=== PATIENT | female | born 1940 | race Caucasian/White ===

== ENCOUNTER 2024-06-10 08:19 | Day surgery (SDC) | payer MEDICARE, BC ==
[~2024-06-10 08:19] MED LIST: Morphine 8 MG, EPINEPHrine 0.3 MG, Cefuroxime 750 MG, Ketorolac 30 MG, Sodium Chloride ... PRN; Sodium Chloride 0.9% 10 ML Syringe FLUSH PRN; Sodium Chloride 0.9% 10 ML Syringe FLUSH SCH
[2024-06-10] MEDS: Lactated Ringers 1,000 ML IV SCH (09:00)
[2024-06-10] MEDS ORDERED: EPINEPHrine 1 MG/ML SDV ONE (09:26)
[2024-06-10] MEDS ORDERED: fentaNYL 100 MCG/2 ML SDV ONE (09:27)
[2024-06-10] MEDS ORDERED: Ropivacaine 0.5% 5 MG/ML 30 ML SDV ONE (09:28)
[2024-06-10] MEDS ORDERED: dexmedeTOMIDine HCl 200 MCG/2 ML SDV ONE (09:31)
[2024-06-10] MEDS ORDERED: Dexamethasone 4 MG/ML 5 ML MDV ONE (09:31)
[2024-06-10] MEDS ORDERED: Ondansetron 4 MG/2 ML SDV ONE (09:34)
[2024-06-10] MEDS ORDERED: ceFAZolin 2 GM Vial ONE (09:34)
[2024-06-10] MEDS ORDERED: Propofol 200 MG/20 ML SDV ONE (09:38)
[2024-06-10] MEDS ORDERED: Lactated Ringers 1,000 ML ONE (10:40)
[2024-06-10] MEDS: Morphine 8 MG, EPINEPHrine 0.3 MG, Cefuroxime 750 MG, Ketorolac 30 MG, Sodium Chloride ... PRN (11:13)
[2024-06-10] MEDS: VANCOmycin 1 GM SDV ONE (11:20)
[2024-06-10] MEDS: Tranexamic Acid 1,000 MG/10 ML Vial ONE (11:20)
[2024-06-10] MEDS: Bupivacaine 0.25% 10 ML SDV ONE (11:34)
[2024-06-10] MEDS: Triamcinolone Acetonide 40 MG/ML 1 ML SDV ONE (11:34)
[2024-06-10] MEDS ORDERED: fentaNYL 100 MCG/2 ML SDV IVPUSH PRN (12:09)
[2024-06-10] MEDS ORDERED: HYDROmorphone 0.5 MG/0.5 ML Syringe IVPUSH PRN (12:09)
[2024-06-10] MEDS ORDERED: Ondansetron 4 MG/2 ML SDV IVPUSH PRN (12:09)
[2024-06-10] MEDS: Acetaminophen/HYDROcodone 325-5 MG Tab PO PRN (13:24)
== END 2024-06-10 15:26 | disposition home or self-care (01) ==
LOC: JD.SDS 08:19
PROVIDERS: ATTEND Orthopaedic Surgery
DX: M17.0 Bilateral primary osteoarthritis of knee (principal); I12.9 Hypertensive chronic kidney disease with stage 1 through stage 4 chronic kidney disease, or unspecified chronic kidney disease; N18.32 Chronic kidney disease, stage 3b; Z79.899 Other long term (current) drug therapy
CPT/HCPCS: 0055T; 20610; 27447; 64447; 73560; 97110; 97161; A9270; J0171; J0665; J0690; J0697; J1100; J1885; J2272; J2405; J2704; J2795; J3010; J3301; J7120; J3490

== ENCOUNTER 2024-09-05 06:00 | Day surgery (SDC) | payer MEDICARE, BC ==
[~2024-09-05 06:00] MED LIST changes: -Morphine 8 MG, EPINEPHrine 0.3 MG, Cefuroxime 750 MG, Ketorolac 30 MG, Sodium Chloride ... PRN
[2024-09-05] MEDS: Lactated Ringers 1,000 ML IV SCH (06:15)
[2024-09-05] MEDS ORDERED: fentaNYL 100 MCG/2 ML SDV IVPUSH PRN (06:34)
[2024-09-05] MEDS ORDERED: Ondansetron 4 MG/2 ML SDV IVPUSH PRN (06:34)
[2024-09-05] MEDS ORDERED: HYDROmorphone 0.5 MG/0.5 ML Syringe IVPUSH PRN (06:34)
[2024-09-05] MEDS ORDERED: Ondansetron 4 MG/2 ML SDV ONE (06:37)
[2024-09-05] MEDS ORDERED: Lidocaine 2% 5 ML SDV ONE (06:37)
[2024-09-05] MEDS ORDERED: Propofol 200 MG/20 ML SDV ONE (06:37)
[2024-09-05] MEDS ORDERED: Dexamethasone 4 MG/ML 5 ML MDV ONE (06:37)
[2024-09-05] MEDS ORDERED: fentaNYL 100 MCG/2 ML SDV ONE (06:38)
[2024-09-05] MEDS ORDERED: Bupivacaine 0.25% 10 ML SDV ONE (06:58)
[2024-09-05] MEDS ORDERED: Bupivacaine 0.5% 10 ML SDV ONE (06:58)
[2024-09-05] MEDS ORDERED: ceFAZolin 2 GM Vial ONE (07:12)
[2024-09-05] MEDS ORDERED: EPINEPHrine 1 MG/ML SDV ONE (07:56)
[2024-09-05] MEDS: Morphine 8 MG, EPINEPHrine 0.3 MG, Cefuroxime 750 MG, Ketorolac 30 MG, Sodium Chloride ... PRN (08:04)
[2024-09-05] MEDS: VANCOmycin 1 GM SDV ONE (08:09)
[2024-09-05] MEDS: Tranexamic Acid 1,000 MG/10 ML Vial ONE (08:09)
[2024-09-05] MEDS: Acetaminophen/HYDROcodone 325-5 MG Tab PO ONE ×2 (09:49→12:30)
[2024-09-05] MEDS ORDERED: Lactated Ringers 1,000 ML ONE (12:01)
== END 2024-09-05 12:30 | disposition home or self-care (01) ==
LOC: JD.SDS 06:00
PROVIDERS: ATTEND Orthopaedic Surgery
DX: M17.12 Unilateral primary osteoarthritis, left knee (principal); I12.9 Hypertensive chronic kidney disease with stage 1 through stage 4 chronic kidney disease, or unspecified chronic kidney disease; E11.22 Type 2 diabetes mellitus with diabetic chronic kidney disease; N18.32 Chronic kidney disease, stage 3b; E11.40 Type 2 diabetes mellitus with diabetic neuropathy, unspecified; E78.2 Mixed hyperlipidemia; K21.9 Gastro-esophageal reflux disease without esophagitis; Z79.899 Other long term (current) drug therapy
CPT/HCPCS: 0055T; 27447; 73560; 97116; 97161; A9270; C1713; C1776; J0171; J0665; J0690; J0697; J1885; J2003; J2272; J2405; J2704; J7120; J1100; J3010; J3490